=== PATIENT | male | born 1970 ===

== ENCOUNTER 2018-07-08 13:23 | Emergency (ER) | payer OTHER ==
[~2018-07-08] VITALS: Ht 175.3 cm; Wt 131.5 kg
[~2018-07-08 13:23] MED LIST: METFORMIN HCL500 MG
== END 2018-07-08 16:07 | disposition home or self-care (01) ==
LOC: ER 13:23
DX: J11.1 Influenza due to unidentified influenza virus with other respiratory manifestations (principal)